=== PATIENT | female | born 1995 | race Hispanic/Latino ===

== ENCOUNTER → 2025-07-08 | Emergency (ER) | payer SELFPAY ==
--- NOTE | 2025-07-08 06:53 | NUR ---
PT SIGNED IN, NO REASON STATED. NOTED PT TO BE ON ZOOM CALLED. ASKED IF SHE COULD PLEASE DISCONNECT CALL DUE TO PRIVACY. PT REFUSED " I AM ROUNDING" " IM DOING CLINICAL ROUNDS. I CANT. I WILL WAIT TTHEN" NO INFORMATION OR V/S OBTAINED
== END ==
LOC: EDH 06:52
DX: Z00.8 Encounter for other general examination (principal); Z53.21 Procedure and treatment not carried out due to patient leaving prior to being seen by health care provider